=== PATIENT | male | born 1945 ===

== ENCOUNTER 2016-07-30 19:45 | Inpatient (IN) | payer MEDICARE, OTHER ==
--- NOTE | ~2016-07-30 | HP ---
History And Physical [facility] [id number] [place]. [address] NAME: JALEN MORA : 49 STATUS : ADM Micah PAT#: [id number] AGE: 71 ADM/REG DATE : 07/30/16 MR#: [id number] REPORT SERV DATE: 07/31/16 DICTATED BY: OSMEL HOLLINGSWORTH DATE: 07/31/16 REPORT STATUS : Draft TRANSCRIBED BY: MAVIS DATE: 07/31/16 DATE OF ADMISSION: 07/30/2016 CHIEF COMPLAINT: Chest pain, arrhythmia/palpitations. PRIMARY CARE PROVIDER: Brock Sauceda. 7TH GRADE TEACHER: Syd Gandara M.D. (patient wishes to transfer to Dr. Galvan to be closer to [place]) NEUROLOGIST: Darwin Cornelius M.D., PhD. HISTORY OF PRESENT ILLNESS: This is a pleasant, 71-year-old, white male with cardiac risk factors of diabetes mellitus type 2, hyperlipidemia, family history of premature coronary artery disease, and overweight status. He does also have a history of paroxysmal atrial fibrillation and is on Eliquis with last dosage being at approximately midnight this morning. The patient tells me that he has been in his usual state of health approximately one week ago, was started on medication for Parkinson's by Dr. Cornelius. He reports he has not had any palpitations or chest pain since March when he had an episode of chest pain at rest along with heart racing for approximately 30 minutes that resolved on its own. He reports he has been quite fatigued over the past number of months and just has no energy to "do anything." He denies any chest pain with exertion. Yesterday at approximately 1430 hours he was watching golf game on TV and he developed palpitations with heart beating quickly in chest. He felt substernal chest pain like reflux. He reports it radiated into his neck and he had a tightening throughout his neck. It also radiated into the left shoulder and all the way down the left arm. He felt quite unwell and had palpitations, dizziness/near syncope. He reports he stayed at home for a number of hours and his symptoms did not resolve. Therefore, he presented to the emergency department at approximately 1700 hours for further evaluation. While in the emergency room, he was noted to be in what appears to be either an atypical atrial flutter versus an atrial fibrillation, rhythm heart rate 170. While he was being examined, he spontaneously converted to sinus rhythm. He reports he did slowly start to feel better and that eventually the left shoulder and left arm pain resolved. The chest pain resolved immediately with spontaneous conversion. At this present time, he denies any symptoms. He denies any syncopal episodes, no edema, no orthopnea, no recent illness. PAST MEDICAL HISTORY: 1. Paroxysmal atrial fibrillation, on Eliquis and metoprolol. 2. Hyperlipidemia. 3. Palpitation. 4. Diabetes mellitus type 2. 5. Hypertension. 6. GERD. 7. Parkinson's. 8. Right wrist fracture. History And Physical [address] [address] NAME: JALEN MORA : 49 STATUS : ADM Micah PAT#: [id number] AGE: 71 ADM/REG DATE : 07/30/16 MR#: [id number] REPORT SERV DATE: 07/31/16 DICTATED BY: OSMEL HOLLINGSWORTH DATE: 07/31/16 REPORT STATUS : Draft TRANSCRIBED BY: MAVIS DATE: 07/31/16 PAST SURGICAL HISTORY: 1. LINQ device placed 11/04/2015, removed in 01/2016 after diagnosed with atrial fibrillation. 2. Right wrist surgery (many years ago). SOCIAL HISTORY: . Retired from [employer] where he worked as an [employer]. He denies any tobacco, alcohol or illicit drug use. He is sedentary due to "lack of energy." FAMILY HISTORY: Significant with brother with myocardial infarction and CABG at the age of 50. He may have also had a valve replaced. He does also have hypertension, diabetes. He does have a second brother who also has premature heart disease with myocardial infarction, hypertension. He eventually had a CABG in his early 60s. REVIEW OF SYSTEMS: The patient denies ever having a stress test. Last echocardiogram was performed 08/24/2015 with an EF of 60%. Mild aortic sclerosis, mild left atrial enlargement. Mild RV enlargement, mild nonspecific thickening of the MV leaflets. The patient denies any palpitations since 03/2016. As above per HPI, all other systems reviewed and negative. ALLERGIES: NO KNOWN ALLERGIES. MEDICATIONS: Reviewed and is as follows: 1. Eliquis 5 mg p.o. twice a day. 2. Vitamin D 2000 mg p.o. twice per day. 3. Lisinopril 5 mg p.o. every morning. 4. Metformin 1000 mg p.o. twice per day. 5. Metoprolol tartrate 50 mg p.o. twice per day. 6. Multivitamins with minerals 1 tablet p.o. with lunch. 7. Protonix 40 mg p.o. every morning. 8. Requip XL 2 mg tablet. He is on a titration dose per med list. 9. Simvastatin 20 mg p.o. at bedtime. PHYSICAL EXAMINATION: VITAL SIGNS: Oxygen saturation 97% on room air, weight 97.21 kg, height 182.88 cm, BMI 29.1, pulse 46, respiratory rate 20, blood pressure 96/58. GENERAL: Well developed, well nourished. In no apparent distress. HEENT: Head normocephalic. No xanthelasma. Sclera clear, anicteric. Moist mucous membranes without pallor. No lymphadenopathy. No deficits noted. NECK: Trachea midline. Supple. No thyromegaly, JVD, or bruits. RESPIRATORY: Unlabored respirations. Breath sounds clear bilaterally to posterior auscultation. No wheezes, rhonchi or crackles. CARDIOVASCULAR: Regular rate and rhythm. No murmur, rub, or gallop appreciated. No chest wall tenderness to palpation. ABDOMEN: Soft, nontender, and nondistended. Active bowel sounds auscultated x4 quadrants. No organomegaly and no masses. No aortic bruit. EXTREMITIES: DP/PT and radial pulses 2+ bilaterally. No clubbing, cyanosis, or edema. History And Physical [address] [address] NAME: JALEN MORA : 49 STATUS : ADM Micah PAT#: [id number] AGE: 71 ADM/REG DATE : 07/30/16 MR#: [id number] REPORT SERV DATE: 07/31/16 DICTATED BY: OSMEL HOLLINGSWORTH DATE: 07/31/16 REPORT STATUS : Draft TRANSCRIBED BY: MODGisell DATE: 07/31/16 SKIN: Warm, dry, intact. No rash. Normal turgor. MUSCULOSKELETAL: Moves all extremities in bed without difficulty. NEURO/PSYCH: Alert and oriented x3 with no acute distress. Affect appropriate to current situation. LABORATORY DATA: BMP: Sodium 142, potassium 4.3, creatinine 0.88, glucose elevated at 154, magnesium low at 1.6. CBC: White blood cell count 6.8, hemoglobin 14.1, hematocrit 40.6, platelets 187. Troponin 0.17, 0.26, 0.43. Holter, 02/07/2016, 5-beat atrial tachycardia, otherwise, negative. STUDIES: Chest x-ray, my read, clear. This is a 1-view chest x-ray. Await official read. EKGs personally interpreted x4. First, poor quality, but it appears to be in SVT, rate 170. It is likely atrial fibrillation versus an atypical atrial flutter. Other nonspecific ST changes noted. Second one, 1704 yesterday and three subsequents, all reveal sinus rhythm/sinus bradycardia with nonspecific ST changes. Currently, telemetry, sinus bradycardia, 50s. ASSESSMENT AND PLAN: 1. Palpitations. The patient's LINQ device has been removed. 2. Paroxysmal atrial fibrillation versus atypical atrial flutter. This is in a person with a history of paroxysmal atrial fibrillation. He did convert spontaneously in the emergency department upon physical examination. I will hold Eliquis for cath arteriogram. Unfortunately, last Eliquis dosage was given at midnight last night. Therefore, we will have to wait for catheterization arteriogram for tomorrow. We will continue metoprolol with hold parameters. Resume Eliquis post cath arteriogram. 3. Acute coronary syndrome. This is in a gentleman with chest pain and nonspecific ST changes with troponin rise from 0.17 to 0.43. He did have chest pain with radiation to the left arm, neck, and left shoulder with palpitations. That troponin rise is higher than I would expect for simple demand secondary to the RVR. He does have significant cardiac risk factors, has not undergone an evaluation previously with age, diabetes mellitus 2, hypertension, hyperlipidemia, and family history of premature coronary artery disease. Therefore, I will start a cardiac weight based heparin drip, we will hold Eliquis, continue aspirin 325 mg p.o. daily. N.p.o. at midnight for cath arteriogram plus or minus PCI tomorrow. We will check an echocardiogram today. I have reviewed the risks and benefits of cath arteriogram and patient wishes to proceed tomorrow. He will be seen by rounding director of teacher education, Dr. Wilder later today. 4. Diabetes mellitus. We will place him on sliding scale insulin while here. 5. Family history of coronary artery disease is noted. 6. Hyperlipidemia. Continue statin. Further recommendations forthcoming by rounding director of teacher education for [facility]. AAMIR/MAVIS Osmel Hollingsworth NP History And Physical [address] [address] NAME: JALEN MORA : 49 STATUS : ADM Micah PAT#: [id number] AGE: 71 ADM/REG DATE : 07/30/16 MR#: [id number] REPORT SERV DATE: 07/31/16 DICTATED BY: OSMEL HOLLINGSWORTH DATE: 07/31/16 REPORT STATUS : Draft TRANSCRIBED BY: MAVIS DATE: 07/31/16 / [id number] CC: Deborah Catalan, MSN, LABOR RELATIONS OFFICER-BC Syd Gandara M.D. Darwin Cornelius M.D., PhD.
[2016-07-30 17:58] LABS: BASOPHILS 0.3 %; BASOPHILS ABSOLUTE 0.02 10/3/uL (0.0-0.16); EOSINOPHILS 3.4 %; EOSINOPHILS ABSOLUTE 0.23 10/3/uL (0.0-0.53); ER CBC TAT 0 Hrs 09 Mins; HEMATOCRIT 40.6 % (40.0-51.0); HEMOGLOBIN 14.1 g/dL (13.6-17.8); IMMATURE GRANULOCYTES 0.1 %; IMMATURE GRANULOCYTES ABSOLUTE 0.01 10/3/uL (0.0-0.11); LYMPHOCYTES ABSOLUTE 1.64 10/3/uL (0.67-4.30); MEAN CORPUS HGB CONC 34.7 g/dL (32.0-36.0); MEAN CORPUSCULAR HEMOGLOB 30.9 pg (26.0-34.0); MEAN CORPUSCULAR VOLUME 88.8 fL (80-100); MONOCYTES 4.4 %; NEUTROPHILS 67.8 %; NEUTROPHILS ABSOLUTE 4.63 10/3/uL (2.02-8.40); PLATELET COUNT 187 10/3/uL (150-400); RED CELL COUNT 4.57 10/6/uL (4.7-6.1); WHITE BLOOD CELLS 6.8 10/3/uL (4.5-10.5)
[2016-07-30 17:59] LABS: MANUAL DIFF NO %
[2016-07-30 18:08] LABS: INTERNATIONAL NORMAL RATI 1.3 UNITS (-); PARTIAL THROMBO TIME 38.6 SEC (22.5-37.2); PROTIME (NOT ORD) 15.7 SEC (12.0-14.5)
[2016-07-30 20:34] LABS: BUN (BLOOD UREA NITROGEN) 14 MG/DL (6-23); CALCIUM, SERUM 8.5 MG/DL (8.5-10.4); CHLORIDE, SERUM 107 MMOL/L (96-112); CO2 (CARBON DIOXIDE) 28 MMOL/L (24-34); CREATININE 0.88 MG/DL (0.70-1.30); GFR AFRICAN AMERICAN 102 ML/MIN (>=60); GFR NON AFRICAN AMERICAN 88 ML/MIN (>=60); GLUCOSE, SERUM 154 MG/DL (60-99); POTASSIUM, SERUM 4.3 MMOL/L (3.5-5.3); SODIUM, SERUM 142 MMOL/L (135-148)
[2016-07-30 20:35] LABS: CHEST PAIN PROFILE TAT 0 Hrs 22 Mins; TROPONIN I 0.17 NG/ML (<0.05)
[2016-07-30] MEDS ORDERED: PRIN5 PO (21:03)
[2016-07-30] MEDS ORDERED: LOP50 PO (21:03)
[2016-07-30] MEDS ORDERED: GLUCOPHAGE1000 MG PO (21:03)
[2016-07-30] MEDS ORDERED: PROTONIX PO (21:04)
[2016-07-30] MEDS ORDERED: ZOCOR20 PO (21:04)
[2016-07-30] MEDS ORDERED: ELIQUIS 5 MG TAB5 MG PO (21:04)
[2016-07-30] MEDS ORDERED: VITAMIN D2000 UNIT PO (21:06)
[2016-07-30] MEDS ORDERED: REQUIP XL2 MG (21:06)
[2016-07-30] MEDS ORDERED: MULTIVIT/MIN PO (21:07)
[2016-07-31 04:43] LABS: TROPONIN I 0.43 NG/ML (<0.05)
[2016-07-31 11:38] LABS: CHOL/HDL RATIO(NOT ORDER) 2.2 (0-5); FREE T4 1.03 NG/DL (0.76-1.46); ULTRASENSITIVE TSH 1.38 MCIU/ML (0.358-3.740)
[2016-08-01 01:54] LABS: BASOPHILS 0.5 %; BASOPHILS ABSOLUTE 0.04 10/3/uL (0.0-0.16); EOSINOPHILS 7.7 %; EOSINOPHILS ABSOLUTE 0.56 10/3/uL (0.0-0.53); HEMATOCRIT 41.7 % (40.0-51.0); HEMOGLOBIN 14.6 g/dL (13.6-17.8); IMMATURE GRANULOCYTES 0.1 %; IMMATURE GRANULOCYTES ABSOLUTE 0.01 10/3/uL (0.0-0.11); LYMPHOCYTES 39.6 %; MEAN CORPUSCULAR HEMOGLOB 31.4 pg (26.0-34.0); MEAN CORPUSCULAR VOLUME 89.7 fL (80-100); MEAN PLATELET VOLUME 11.6 fL (9.2-13.0); MONOCYTES 4.8 %; MONOCYTES ABSOLUTE 0.35 10/3/uL (0.21-1.20); NEUTROPHILS 47.3 %; NEUTROPHILS ABSOLUTE 3.46 10/3/uL (2.02-8.40); PLATELET COUNT 193 10/3/uL (150-400); RBC DISTRIBUTION WIDTH 13.9 % (12.0-16.0); RED CELL COUNT 4.65 10/6/uL (4.7-6.1); WHITE BLOOD CELLS 7.3 10/3/uL (4.5-10.5)
[2016-08-01 01:55] LABS: MANUAL DIFF NO %
[2016-08-01 02:00] LABS: INTERNATIONAL NORMAL RATI 1.2 UNITS (-); PROTIME (NOT ORD) 14.8 SEC (12.0-14.5)
[2016-08-01 02:06] LABS: BUN (BLOOD UREA NITROGEN) 15 MG/DL (6-23); CALCIUM, SERUM 9.2 MG/DL (8.5-10.4); CHLORIDE, SERUM 106 MMOL/L (96-112); CO2 (CARBON DIOXIDE) 28 MMOL/L (24-34); CREATININE 0.85 MG/DL (0.70-1.30); GFR AFRICAN AMERICAN 103 ML/MIN (>=60); GFR NON AFRICAN AMERICAN 89 ML/MIN (>=60); GLUCOSE, SERUM 116 MG/DL (60-99); SODIUM, SERUM 141 MMOL/L (135-148)
[2016-08-01 02:39] LABS: PARTIAL THROMBO TIME 83.6 SEC (22.5-37.2)
[2016-08-02] MEDS ORDERED: ASAB PO (09:54)
[2016-08-02] MEDS ORDERED: PLAVIX PO (09:54)
[2016-08-02] MEDS ORDERED: NITROQUICK0.4 MG SL (09:59)
[2016-08-02] MEDS ORDERED: LIPITOR40 PO (10:04)
== END 2016-08-02 10:46 | disposition home or self-care (01) | DRG 247 ==
LOC: ER 19:45 → CDU1 21:15 → CDU2 22:07 → SSU1 08-01 14:30
PROVIDERS: Clinical Nurse Specialist; Emergency Medicine; Nurse Practitioner Family
DX: I21.4 Non-ST elevation (NSTEMI) myocardial infarction (principal); I11.0 Hypertensive heart disease with heart failure; G20 Parkinson's disease; I47.1 Supraventricular tachycardia; I48.92 Unspecified atrial flutter; I25.10 Atherosclerotic heart disease of native coronary artery without angina pectoris; E11.9 Type 2 diabetes mellitus without complications; E78.00 Pure hypercholesterolemia, unspecified; E78.5 Hyperlipidemia, unspecified; I48.0 Paroxysmal atrial fibrillation; K21.9 Gastro-esophageal reflux disease without esophagitis; Z98.890 Other specified postprocedural states; Z79.4 Long term (current) use of insulin; Z82.49 Family history of ischemic heart disease and other diseases of the circulatory system; Z83.3 Family history of diabetes mellitus
CPT/HCPCS: 71010; 80048; 80061; 82962; 83735; 84439; 84443; 84484; 85025; 85610; 85730; 93005; 93306; 93458; 99152; 99153; 99285; A9270-GY; C1725; C1760; C1769; C1874; C1887; C9600; J0583; J2250; J3010; J3475; Q9967